=== PATIENT | female | born 1990 | race Two or more races ===

== ENCOUNTER 2017-08-27 11:10 | Emergency (ER) | payer SELFPAY ==
[~2017-08-27] VITALS: Ht 172.7 cm; Wt 134.3 kg
[2017-08-27 12:11] VITALS: BP 149/95
[2017-08-27] MEDS ORDERED: ONDANSETRON HCL 4 MG/2 ML VIAL IM ONE (12:30)
[2017-08-27] MEDS ORDERED: HYDROmorphone HCL 2 MG/ML VL IM ONE (12:30)
== END 2017-08-27 13:22 | disposition home or self-care (01) ==
LOC: ER 11:10
DX: S92.141A Displaced dome fracture of right talus, initial encounter for closed fracture (principal); R42 Dizziness and giddiness; V43.52XA Car driver injured in collision with other type car in traffic accident, initial encounter; Y93.89 Activity, other specified; Y99.8 Other external cause status; Y92.89 Other specified places as the place of occurrence of the external cause
CPT/HCPCS: 29515; 70450; 73610; 96372; 99284; J1170; J2405